=== PATIENT | female | born 2000 | race Caucasian/White ===

== ENCOUNTER 2022-09-01 22:34 | Emergency (ER) | payer MEDICAID ==
[~2022-09-01] VITALS: Ht 172.7 cm; Wt 79.4 kg
--- NOTE | 2022-09-01 22:56 | ED EENT ---
History of Present Illness General Chief Complaint: Oral/Throat Problems Stated Complaint: SORE THROAT Source: patient History of Present Illness Date Seen by Provider: Sep 01, 2022 Time Seen by Provider: 22:41 Initial Comments PT ARRIVES VIA POV FROM HOME PT STATES SHE HAS HAD A "LUMP" IN HER THROAT/ LEFT NECK FOR 7 YEARS, AND HER THROAT/NECK ALWAYS HURTS SHE HAS AN APPOINTMENT WITH DR. GUTIERREZ 09/07/22 FOR THIS PROBLEM, AND HAS SURGERY SCHEDULED 09/22/22 TO HAVE IT REMOVED. SHE HAS ALREADY SEEN DR. GUTIERREZ'S HOTEL BAGGAGE HANDLER/PA AND HAD AN ULTRASOUND OF THE AREA. PT STATES SHE WAS TOLD IT WAS A SWOLLEN LYMPH NODE AND WAS "8 MM" ON ULTRASOUND. SHE STATES THAT TODAY SHE "CAN'T EAT OR DRINK OR SWALLOW" BECAUSE HER THROAT HURTS SHE HAS NOT TAKEN ANYTHING FOR PAIN TODAY--HAS TAKEN IBUPROFEN, BUT STATES IT DOES NOT HELP NO FEVER NO URI SYMPTOMS NO DIFFICULTY BREATHING, STATES SOMETIMES IT FEELS LIKE SHE CAN'T BREATHE WHEN SHE SLEEPS. SHE STATES THEY ARE SETTING HER UP WITH A SLEEP STUDY NO COUGH STATES SHE HAS TAKEN ANTIBIOTICS IN THE PAST FOR "SINUS INFECTIONS" BUT NO IMPROVEMENT IN THE LUMP IN HER NECK. SHE DOES NOT HAVE ANY SWOLLEN LYMPH NODES ANYWHERE ELSE LMP 08/10/22-08/14/22.NORMAL. NO CONTROL. PCP: CHARLES Allergies and Home Medications Allergies Coded Allergies: No Known Drug Allergies (Unverified , 11/07/13) Patient Home Medication List No Active Prescriptions or Reported Meds Review of Systems Review of Systems Constitutional: no symptoms reported Eyes: No Symptoms Reported Ears: No Symptoms Reported Nose: no symptoms reported Mouth: other (STATES SHE HAS HAD A "CANKER SORE" IN HER MOUTH FOR THE LAST 3 DAYS--STATES SHE "GETS THEM ALL THE TIME" AND THIS IS NO DIFFERENT THAN USUAL. SHE HAS NOT TAKEN ANYTHING FOR IT. ) Throat: see HPI Respiratory: no symptoms reported Cardiovascular: no symptoms reported Gastrointestinal: no symptoms reported Musculoskeletal: no symptoms reported Skin: no symptoms reported Neurological: No Symptoms Reported Hematologic/Lymphatic: See HPI Immunological/Allergic: no symptoms reported Past Vwjzjht-Bihlfg-Udrgyk Hx Patient Social History Tobacco Use?: No Substance use?: No Alcohol Use?: No Past Medical History Surgeries: No Respiratory: No Cardiac: No Neurological: No : No Reproductive Disorders: No Genitourinary: No Gastrointestinal: No Musculoskeletal: No HEENT: Yes (LEFT NECK "LUMP" X 7 YEARS) Cancer: No Psychosocial: No Integumentary: No Blood Disorders: No Physical Exam Vital Signs Vital Signs - First Documented 09/01/22 22:42 Temp 36.6 Pulse 93 Resp 16 B/P (MAP) 147/92 (110) Pulse Ox 100 O2 Delivery Room Air Height, Weight, BMI Height: 5'" Weight: 114lbs. oz. 51.252821oo; 25.27 BMI Method: General Appearance: WD/WN, no apparent distress, other (DOES NOT APPEAR ILL OR TO BE IN ANY DISCOMFORT OR DISTRESS. SHE TALKS VERY RAPIDLY NON-STOP AT GREAT LENGTH. ) Eyes: bilateral eye normal inspection, bilateral eye PERRL, bilateral eye EOMI Ears: bilateral ear auricle normal, bilateral ear canal normal, bilateral ear TM normal Nose: normal inspection Mouth/Throat: No trismus, No uvula swelling, No voice changes; other (SHALLOW ULCERATION APPROXIMATELY 3 MM IN DIAMETER TO SOFT PALATE, JUST ANTERIOR TO UVULA. NO SWELLING OR INFLAMMATION TO UVULA. TONSILS ARE +2/4 IN SIZE. NON- INFLAMED. NO EXUDATE. NO SIGNS OF ABSCESS. NO TRISMUS. NO ABNORMALITIES NOTED ON TONGUE. ) Neck: full range of motion; No thyromegaly; other (APPROXIMATELY 1 1/2 CM VERY TENDER SUPERFICIAL SUB Q NODULE TO LEFT SUBMANDIBULAR AREA--JUST UNDER THE SKIN, AND IS MOBILE. OVERLYING SKIN APPEARS NORMAL. THERE ARE NO OTHER SIGNIFICANTLY ENLARGED NODES IN HEAD/NECK/SUPRACLAVICULAR AREA. ) Cardiovascular: regular rate, rhythm, no murmur Respiratory: normal breath sounds, no respiratory distress, no accessory muscle use Gastrointestinal: soft Neurologic/Psychiatric: no motor/sensory deficits, alert, oriented x 3, other Skin: normal color, warm/dry, tattoos/piercings (EXTENSIVE TATTOOS) Progress/Results/Core Measures Results/Orders Lab Results Laboratory Tests Test 09/01/22 22:45 09/01/22 23:55 Range/Units Influenza Type A (RT-PCR) Not Detected Not Detecte Influenza Type B (RT-PCR) Not Detected Not Detecte SARS-CoV-2 RNA (RT-PCR) Not Detected Not Detecte Group A Streptococcus Screen NEGATIVE NEGATIVE White Blood Count 6.9 4.3-11.0 10^3/uL Red Blood Count 4.28 3.80-5.11 10^6/uL Hemoglobin 11.9 11.5-16.0 g/dL Hematocrit 36 35-52 % Mean Corpuscular Volume 83 80-99 fL Mean Corpuscular Hemoglobin 28 25-34 pg Mean Corpuscular Hemoglobin Concent 33 32-36 g/dL Red Cell Distribution Width 13.4 10.0-14.5 % Platelet Count 310 130-400 10^3/uL Mean Platelet Volume 9.4 9.0-12.2 fL Immature Granulocyte % (Auto) 0 % Neutrophils (%) (Auto) 69 42-75 % Lymphocytes (%) (Auto) 21 12-44 % Monocytes (%) (Auto) 8 0-12 % Eosinophils (%) (Auto) 1 0-10 % Basophils (%) (Auto) 1 0-10 % Neutrophils # (Auto) 4.7 1.8-7.8 10^3/uL Lymphocytes # (Auto) 1.5 1.0-4.0 10^3/uL Monocytes # (Auto) 0.5 0.0-1.0 10^3/uL Eosinophils # (Auto) 0.0 0.0-0.3 10^3/uL Basophils # (Auto) 0.1 0.0-0.1 10^3/uL Immature Granulocyte # (Auto) 0.0 0.0-0.1 10^3/uL Sodium Level 140 135-145 MMOL/L Potassium Level 3.5 L 3.6-5.0 MMOL/L Chloride Level 106 98-107 MMOL/L Carbon Dioxide Level 24 21-32 MMOL/L Anion Gap 10 5-14 MMOL/L Blood Urea Nitrogen 10 7-18 MG/DL Creatinine 0.79 0.60-1.30 MG/DL Estimat Glomerular Filtration Rate 110 BUN/Creatinine Ratio 13 Glucose Level 98 70-105 MG/DL Calcium Level 9.3 8.5-10.1 MG/DL Corrected Calcium 9.1 8.5-10.1 MG/DL Total Bilirubin 0.2 0.1-1.0 MG/DL Aspartate Amino Transf (AST/SGOT) 17 5-34 U/L Alanine Aminotransferase (ALT/SGPT) 14 0-55 U/L Alkaline Phosphatase 61 40-136 U/L Total Protein 7.9 6.4-8.2 GM/DL Albumin 4.3 3.2-4.5 GM/DL Monoscreen NEGATIVE NEGATIVE My Orders Orders - RADHA JACKSON DO Rapid Strep A Screen (09/01/22 22:40) Covid 19 Inhouse Test (09/01/22 22:40) Influenza A And B By Pcr (09/01/22 22:40) Isolation Central Supply Req (09/01/22 22:40) Ed Iv/Invasive Line Start (09/01/22 23:43) Cbc With Automated Diff (09/01/22 23:43) Comprehensive Metabolic Panel (09/01/22 23:43) Monotest (09/01/22 23:43) Ketorolac Injection (Toradol Injection) (09/01/22 23:43) Vital Signs/I&O 09/01/22 22:42 Temp 36.6 Pulse 93 Resp 16 B/P (MAP) 147/92 (110) Pulse Ox 100 O2 Delivery Room Air Progress Progress Note : Progress Note PLACED IN ISOLATION ROOM PPE WORN COVID, FLU AND STREP TESTING DONE AND ARE ALL NEGATIVE. PT WOULD LIKE ADDITIONAL TESTS DONE. CBC, CMP AND MONO TESTING DONE. THERE IS NO INDICATION FOR EMERGENT CT SCAN AT THIS TIME. THERE IS NO EVIDENCE OF AIRWAY INVOLVEMENT, PT IS ABLE TO HANDLE SECRETIONS, THE NODULE OF CONCERN IS LATERAL AND SUBMANDIBULAR, AND NOT ENCROACHING ON TRACHEA. THYROID IS NOT ENLARGED ON EXAM. Departure Impression Primary Impression: CHRONIC LEFT SUBMANDIBULAR NODULE Additional Impression: Oral aphthous ulcer Disposition: 01 HOME, SELF-CARE Condition: Stable Departure-Patient Inst. Decision time for Depature: 00:35 Referrals: AURELIA GUTIERREZ MD [facility] (PCP/Family) Primary Care Physician Patient Instructions: Chronic Lymphadenitis (DC), Mouth Sores (DC) Add. Discharge Instructions: TYLENOL AND MOTRIN NEEDED FOR PAIN FREQUENT SALT WATER GARGLES. SOFT FOODS, DIET TOLERATED KEEP YOUR APPOINTMENT WITH DR. GUTIERREZ SCHEDULED All discharge instructions reviewed with patient and/or family. Voiced un derstanding. Scripts Lidocaine HCl (Lidocaine HCl Viscous) 2 % Solution 1-2 ML MM [id number], #120 ML Prov: RADHA JACKSON DO 09/02/22 RADHA JACKSON DO Sep 01, 2022 22:56
[2022-09-01] MEDS ORDERED: KETOROLAC 30 MG/ML VIAL IVP STA (23:43)
[2022-09-02 00:05] LABS: BASOPHILS # (AUTO) 0.1 10^3/uL (0.0-0.1); BASOPHILS % (AUTO) 1 % (0-10); EOSINOPHILS % (AUTO) 1 % (0-10); HEMATOCRIT 36 % (35-52); HEMOGLOBIN 11.9 g/dL (11.5-16.0); LYMPHOCYTES # (AUTO) 1.5 10^3/uL (1.0-4.0); LYMPHOCYTES % (AUTO) 21 % (12-44); MEAN CORPUSCULAR HEMOGLOBIN 28 pg (25-34); MEAN CORPUSCULAR HGB CONC 33 g/dL (32-36); MEAN CORPUSCULAR VOLUME 83 fL (80-99); MEAN PLATELET VOLUME 9.4 fL (9.0-12.2); MONOCYTES # (AUTO) 0.5 10^3/uL (0.0-1.0); MONOCYTES % (AUTO) 8 % (0-12); NEUTROPHILS # (AUTO) 4.7 10^3/uL (1.8-7.8); NEUTROPHILS % (AUTO) 69 % (42-75); PLATELET COUNT 310 10^3/uL (130-400); WHITE BLOOD COUNT 6.9 10^3/uL (4.3-11.0)
[2022-09-02 00:16] LABS: ALBUMIN 4.3 GM/DL (3.2-4.5); POTASSIUM 3.5 MMOL/L (3.6-5.0)
[2022-09-02 00:17] LABS: CALCIUM 9.3 MG/DL (8.5-10.1)
[2022-09-02 00:18] LABS: TOTAL PROTEIN 7.9 GM/DL (6.4-8.2)
[2022-09-02 00:20] LABS: BILIRUBIN,TOTAL 0.2 MG/DL (0.1-1.0)
[2022-09-02 00:22] LABS: CREATININE SERUM 0.79 MG/DL (0.60-1.30)
[2022-09-02] MEDS ORDERED: LIDO15SO6 MM (00:42)
[2022-09-02] MEDS ORDERED: LIDOCAINE 2% VISCOUS 15 ML UDC MM ONE (00:45)
[2022-09-02 00:51] VITALS: BP 129/85
== END 2022-09-02 00:52 | disposition home or self-care (01) ==
LOC: EDUNIT# 22:34 → ER 22:37
DX: K11.8 Other diseases of salivary glands (principal); K12.0 Recurrent oral aphthae; Z28.310 Unvaccinated for COVID-19; Z20.822 Contact with and (suspected) exposure to COVID-19
CPT/HCPCS: 36415; 80053; 85025; 86308; 87430; 87636

== ENCOUNTER 2022-09-15 05:35 | Outpatient (CLI) | payer MEDICAID ==
[~2022-09-15] VITALS: Ht 172.7 cm; Wt 88.6 kg
[~2022-09-15 05:35] MED LIST: LIDO15SO6 MM
== END 2022-09-15 13:08 | disposition home or self-care (01) ==
LOC: PREOP 05:35
PROVIDERS: ATTEND Otolaryngology Otolaryngology/Facial Plastic Surgery
DX: Z01.818 Encounter for other preprocedural examination (principal)

== ENCOUNTER 2022-09-22 07:05 | Day surgery (SDC) | payer MEDICAID ==
[~2022-09-22] VITALS: Ht 172.7 cm; Wt 88.6 kg
[2022-09-22] VITALS (10 sets, daily range): BP systolic 92–121; BP diastolic 48–87
[2022-09-22] MEDS ORDERED: LACTATED RINGERS 1,000 ML IV PRN (08:00)
[2022-09-22] MEDS ORDERED: LIDOCAINE/EPI 1%-1:100,000 (XYLOCAINE) 20ML ONE (08:04)
[2022-09-22] MEDS ORDERED: MUPIROCIN 2% OINT 22 GM (BACTROBAN) TUBE ONE (08:04)
[2022-09-22 08:17] LABS: BASOPHILS % (AUTO) 1 % (0-10); EOSINOPHILS # (AUTO) 0.1 10^3/uL (0.0-0.3); EOSINOPHILS % (AUTO) 2 % (0-10); HEMATOCRIT 34 % (35-52); HEMOGLOBIN 11.1 g/dL (11.5-16.0); LYMPHOCYTES # (AUTO) 2.1 10^3/uL (1.0-4.0); LYMPHOCYTES % (AUTO) 37 % (12-44); MEAN CORPUSCULAR HEMOGLOBIN 27 pg (25-34); MEAN CORPUSCULAR HGB CONC 33 g/dL (32-36); MEAN CORPUSCULAR VOLUME 83 fL (80-99); MEAN PLATELET VOLUME 9.9 fL (9.0-12.2); MONOCYTES # (AUTO) 0.4 10^3/uL (0.0-1.0); MONOCYTES % (AUTO) 7 % (0-12); NEUTROPHILS % (AUTO) 53 % (42-75); PLATELET COUNT 314 10^3/uL (130-400); WHITE BLOOD COUNT 5.6 10^3/uL (4.3-11.0)
[2022-09-22 08:33] LABS: CALCIUM 8.5 MG/DL (8.5-10.1); CREATININE SERUM 0.73 MG/DL (0.60-1.30); POTASSIUM 3.9 MMOL/L (3.6-5.0)
[2022-09-22] MEDS ORDERED: proPOfol 200 MG/20 ML (DIPRIVAN) VIAL IV ONE (08:40)
[2022-09-22] MEDS ORDERED: LIDOCAINE PF 2% 5 ML (XYLOCAINE) VIAL ONE (08:40)
[2022-09-22] MEDS ORDERED: ONDANSETRON 4 MG/2 ML (SDV) Z0FRAN ONE (08:40)
[2022-09-22] MEDS ORDERED: MIDAZOLAM 2 MG/2 ML (VERSED) VIAL ONE (08:41)
[2022-09-22] MEDS ORDERED: fentaNYL INJ 100 MCG/2 ML AMP ONE (08:41)
--- NOTE | 2022-09-22 09:04 | Progress Note-Pre Operative ---
Pre-Operative Progress Note Date of Available H&P: Sep 22, 2022 Date H&P Reviewed: Sep 22, 2022 Time H&P Reviewed: 08:00 History & Physical: H&P Reviewed, Patient Examed, No changes noted Changes from last HP none Pre-Operative Diagnosis: Left Neck Mass AURELIA GUTIERREZ MD Sep 22, 2022 09:04
--- NOTE | 2022-09-22 09:05 | Progress Note-Post Operative ---
Post-Operative Progess Note Surgeon (s)/Senior Vice President (s) Surgeon AURELIA GUTIERREZ MD Senior Vice President n/a Pre-Operative Diagnosis Left Neck Mass Post-Operative Diagnosis same Post-Op Procedure Note Date of Procedure: Sep 22, 2022 Name of Procedure Performed: Excision of Left Neck Mass Description & Findings Description and Findings: n/a Anesthesia Type lma Estimated Blood Loss minimal Packing none. Specimen(s) collected/removed left neck mass to pathology AURELIA GUTIERREZ MD Sep 22, 2022 09:05
[2022-09-22] MEDS ORDERED: ACETAMINOPHEN 325 MG TABLET PO PRN (09:15)
[2022-09-22] MEDS ORDERED: HYDROcodone/APAP 5 MG/325 MG (LORTAB) TAB PO PRN (09:15)
[2022-09-22] MEDS ORDERED: LIDOCAINE/EPI 1%-1:100,000 (XYLOCAINE) 20ML INJ ONE (09:20)
[2022-09-22] MEDS ORDERED: MUPIROCIN 2% OINT 22 GM (BACTROBAN) TUBE TOP ONE (09:38)
--- NOTE | 2022-09-22 13:55 | Anesthesia-General Post-Op ---
General Patient Condition Mental Status/LOC: Same as Preop Cardiovascular: Satisfactory Nausea/Vomiting: Absent Respiratory: Satisfactory Pain: Controlled Complications: Absent Post Op Complications Complications None Follow Up Care/Instructions Patient Instructions None needed. Anesthesia/Patient Condition Patient Condition Patient was doing well after the procedure with no complaints, stable vital signs, no apparent adverse anesthesia problems. No complications reported per nursing. JONEL HUBBARD DO Sep 22, 2022 13:55
[2022-09-22] MEDS ORDERED: ONDANSETRON 4 MG/2 ML (SDV) Z0FRAN IVP PRN (14:00)
[2022-09-22] MEDS ORDERED: morphine INJ 10 MG/ML 1ML (SYR OR VIAL) IVP ONE (14:00)
== END 2022-09-22 11:35 | disposition home or self-care (01) ==
LOC: SDC 07:05
PROVIDERS: ATTEND Otolaryngology Otolaryngology/Facial Plastic Surgery
DX: R59.0 Localized enlarged lymph nodes (principal); F17.290 Nicotine dependence, other tobacco product, uncomplicated
CPT/HCPCS: 36415; 80048; 84703; 85025; 87081

== ENCOUNTER 2022-10-07 17:35 | Emergency (ER) | payer OTHER, MEDICAID ==
[~2022-10-07] VITALS: Ht 172.7 cm; Wt 88.5 kg
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
[2022-10-07 19:27] VITALS: BP 116/85
== END 2022-10-07 19:27 | disposition home or self-care (01) ==
LOC: EDUNIT# 17:35 → ER 17:37
DX: S60.311A Abrasion of right thumb, initial encounter (principal); F17.210 Nicotine dependence, cigarettes, uncomplicated; V89.2XXA Person injured in unspecified motor-vehicle accident, traffic, initial encounter; Y92.410 Unspecified street and highway as the place of occurrence of the external cause
CPT/HCPCS: 73130; 99283